=== PATIENT | male | born 1960 | race African-American/Black ===

== ENCOUNTER 2018-03-04 02:22 | Inpatient (IN) | payer MEDICARE, OTHER ==
[~2018-03-04] VITALS: Ht 175.3 cm; Wt 68.0 kg
--- NOTE | 2018-03-04 02:30 | NUR ---
PT IN ROOM ALERT AWAKE IN NO ACUTE DISTRESS. STATES HE HAS HIP PAIN AND NEEDS ASSISTANCE WITH ADLS. AWAITING MD ORDERS AT THIS TIME.
[2018-03-04] MEDS ORDERED: KETOROLAC TROMETHAMINE 60 MG INJ IM ONE ×2 (02:45→02:58)
--- NOTE | 2018-03-04 03:07 | NUR ---
Pt back to ER from CT.
--- NOTE | 2018-03-04 04:00 | NUR ---
PATIENT IN ROOM ASLEEP WITH NO C/O ACTIVE HIP PAIN SINCE RECEIVING TORADOL. WILL CONTINUE TO MONITOR.
[2018-03-04] MEDS ORDERED: HYDROCODONE/APAP 10-325 MG TABLET PO PRN (05:30)
[2018-03-04] MEDS ORDERED: ACETAMINOPHEN 325 MG TABLET PO PRN (05:30)
[2018-03-04] MEDS ORDERED: MORPHINE SULFATE 2 MG/1 ML DISP.SYRIN IV PRN (05:30)
[2018-03-04] MEDS ORDERED: Z GUARD REMEDY PASTE 57 GM TUBE TOP PRN (05:30)
[2018-03-04] MEDS ORDERED: ONDANSETRON 4 MG/2 ML VIAL IV PRN (05:30)
[2018-03-04] MEDS ORDERED: HYDROCODONE/APAP 5-325MG TABLET PO PRN (05:30)
[2018-03-04] MEDS ORDERED: MAGNESIUM HYDROXIDE 30 ML LIQUID UDC PO PRN (05:30)
[2018-03-04 06:09] LABS: BASOPHILS % (AUTO) 0.8 % (0.0-2.0); EOSINOPHILS % (AUTO) 0.3 % (0.0-7.0); HEMATOCRIT 41.1 % (36.7-47.1); HEMOGLOBIN 13.9 g/dL (12.5-16.3); LYMPHOCYTES # (AUTO) 1.5 K/uL (20.0-40.0); LYMPHOCYTES % (AUTO) 27.9 % (20.5-51.5); MEAN CORPUSCULAR HEMOGLOBIN 31.5 uug (23.8-33.4); MEAN CORPUSCULAR HGB CONC 34 g/dL (32.5-36.3); MEAN CORPUSCULAR VOLUME 93.1 fL (73.0-96.2); MONOCYTES # (AUTO) 0.8 K/uL (2.0-10.0); MONOCYTES % (AUTO) 14.6 % (0.0-11.0); NEUTROPHILS % (AUTO) 56.4 % (38.5-71.5); PLATELET COUNT (AUTO) 244 K/uL (152-348); RED BLOOD CELL COUNT(AUTO) 4.41 MIL/uL (4.06-5.63); WHITE BLOOD COUNT (AUTO) 5.4 K/uL (3.6-10.2)
--- NOTE | 2018-03-04 06:13 | NUR ---
Pt. admitted to Med Surg , under care of Mamta Solorzano NP. Dx: R hip fx. Belongs List completed
[2018-03-04 06:14] LABS: POTASSIUM 3.9 mmol/L (3.5-5.1)
--- NOTE | 2018-03-04 06:14 | NUR ---
Report given to Bridgette ELMORE
--- NOTE | 2018-03-04 06:20 | NUR ---
Received pt in unit and noted to be AAO x 3 at this time. Pt complaining of pain on bilateral hips at this time. Pertinent assessments done. Unit orientation provided. Safe environment implemented. Call light within reach.
[2018-03-04 06:21] LABS: BILIRUBIN,DIRECT 0.1 mg/dL (0.0-0.2); BILIRUBIN,TOTAL 0.4 mg/dL (0.2-1.0); TOTAL PROTEIN, SERUM 7.3 g/dL (6.4-8.2)
[2018-03-04 06:23] VITALS: BP 152/79
--- NOTE | 2018-03-04 08:00 | NUR ---
AWAKE ALERT NON COOPERATE REFUSED TO CHANGE CLOTHES TO HOSPITAL GOWN IVF START ORDER NO SOB OR PAIN AT THIS TIME CALL LIGHT IN REACH
[2018-03-04] MEDS: IV D5/ 0.9% NACL 1,000 ML IV SCH (08:30)
[2018-03-04] MEDS ORDERED: PANTOPRAZOLE SODIUM 40 MG VIAL IV SCH (09:00)
[2018-03-04] MEDS ORDERED: HYDR-548 PO (10:13)
[2018-03-04 11:15] VITALS: BP 138/79
--- NOTE | 2018-03-04 11:30 | NUR ---
DEPUTY SHERIFF [employer] VELASQUEZ THORPE WAS INFORM OF PATIENT STATE HUNGRY BUT ORDER STILL KEEP NPO AND MESSAGE LEFT
--- NOTE | 2018-03-04 11:35 | NUR ---
PAIN MED PRN GIVEN FOR RT HIP PAIN ORDER WITH SIP OF WATER
--- NOTE | 2018-03-04 12:30 | NUR ---
PAIN RELEFT RESTING QUIET STATE WANT TO GO HOME ,TELL HIM TO [facility] TO SEE HIM /THEN HE WAS CALM DOWN
[2018-03-04] MEDS ORDERED: FENTANYL CITRATE 100 MCG/2 ML AMPUL IV PRN (15:15)
[2018-03-04 15:32] VITALS: BP 134/63
[2018-03-04] MEDS ORDERED: OXYCODONE/APAP 5-325 MG TABLET PO PRN (15:45)
[2018-03-04 16:45] LABS: *BILIRUBIN,URIN NEGATIVE (NEGATIVE); *BLOOD, URINE NEGATIVE (NEGATIVE); *COLOR,URINE YELLOW (YELLOW); *KETONES,URINE TRACE (NEGATIVE); *PROTEIN,URINE NEGATIVE (NEGATIVE); *UROBILINOGEN,URINE 0.2 E.U./dl (NORMAL); LEUKOCYTE ESTERASE ,URINE 1+ (NEGATIVE); NITRITE, URINE NEGATIVE (NEGATIVE); PH,URINE 5.5 (5.0-8.0); UGLUCOSE NEGATIVE (NEGATIVE)
[2018-03-04 16:52] LABS: *CLARITY,URINE SLIGHTLY HAZY (CLEAR)
[2018-03-04 16:54] LABS: MUCUS,URINE MANY /LPF (0-FEW)
[2018-03-04 16:58] LABS: RBC,URINE 0-3 /HPF (0-3); WBC,URINE 20-50 /HPF (0-3)
--- NOTE | 2018-03-04 17:30 | NUR ---
RESTING QUIET NO ACUTE DISTRESS ,PAIN UNDER CONTROL SAFETY MEASURE PROVIDED CALL LIGHT IN REACH
[2018-03-04] MEDS: OXYCODONE/APAP 5-325 MG TABLET PO PRN ×2 (18:27→23:40)
--- NOTE | 2018-03-04 19:20 | NUR ---
RECEIVED PT AWAKE, ALERT, AND ORIENTEDX3. PT COMPLAINING OF RIGHT HIP PAIN. PT WITH NO SHORTNESS OF BREATH. IV INTACT AND PATENT. PT VITAL SIGNS STABLE. CALL LIGHT WITHIN REACH. SAFETY AND COMFORT PROVIDED. WILL CONTINUE TO MONITOR.
[2018-03-04 19:30] VITALS: BP 118/61
[2018-03-04] MEDS: HYDROCODONE/APAP 5-325MG TABLET PO PRN (20:18)
[2018-03-05] MEDS: IV D5/ 0.9% NACL 1,000 ML IV SCH (00:55)
[2018-03-05] MEDS: HYDROCODONE/APAP 5-325MG TABLET PO PRN (04:49)
[2018-03-05 04:56] VITALS: BP 145/87
--- NOTE | 2018-03-05 06:13 | NUR ---
PT SLEPT THROUGHOUT THE SHIFT. PT SHOWS NO SIGNS OF DISTRESS. PT IV INTACT AND PATENT.PAIN MANAGEMENT DONE.PRESCRIBED MEDICATION GIVEN AND PT TOLERATED IT WELL.PT REFUSED HIS BLOOD DRAWN. CHARGE NURSE AWARE. SAFETY AND COMFORT PROVIDED. WILL ENDORSE TO DAYSHIFT NURSE FOR CONTINUITY OF CARE.
--- NOTE | 2018-03-05 07:30 | NUR ---
AWAKE ANXIUOS STATE WANT TO GO HOME TODAY NO PAIN OR SOB CONTINUE IVF INFUSION WELL RT AC VOIDING DK IWONA URINE USE URINAL AT BEDSIDE ON FALL PRECAUTION CALL MALHOTRA IN REACH AND INSTRUCTION TO CALL WHEN NEED
--- NOTE | 2018-03-05 07:55 | NUR ---
PATIENT WAS GETTING UP AND AMB TO THE [address] WAY SCREAMMING AND STATE I AM GOING HOME NOW , EXPLAINED THE RISKS OF LEAVING HOSPITAL AT THIS TIME BUT HE STILL WANT TO GO HOME IV WAS D/C PRIOR AMA BELONGING GIVEN TO HIM ,REFUSED TO SIGNS AMA FORM AND LEFT THE HOSPITAL AT THIS TIME NO ACUTE DISTRESS OR PAIN
[2018-03-05 08:00] VITALS: BP 130/62
--- NOTE | 2018-03-05 08:15 | NUR ---
Hugo DEVLIN WAS INFORM OF PATIENT AMA BY [facility] CHARGE NURSE AND ALSO ARANZA WEINER WAS NOTIFY
--- NOTE | 2018-03-05 08:30 | NUR ---
Dhiraj ROJAS WAS CALLED AND MESSAGE LEFT REGARDING PT AMA
== END 2018-03-05 07:55 | disposition left against medical advice (07) | DRG 560 ==
LOC: ER 02:27 → MED 05:56
PROVIDERS: ADMIT Registered Nurse; ATTEND Internal Medicine
DX: M97.01XA Periprosthetic fracture around internal prosthetic right hip joint, initial encounter (principal); M87.9 Osteonecrosis, unspecified; W01.0XXA Fall on same level from slipping, tripping and stumbling without subsequent striking against object, initial encounter; Z59.0 Homelessness; F17.210 Nicotine dependence, cigarettes, uncomplicated; Y93.9 Activity, unspecified; Y92.9 Unspecified place or not applicable; Z71.6 Tobacco abuse counseling
CPT/HCPCS: 36415; 70030-TC; 71045; 72192; 85025; 85730; 93005; A4663; C9113; J1885; J7042